=== PATIENT | female | born 1985 | race Caucasian/White ===

== ENCOUNTER 2021-07-31 20:23 | Emergency (ER) | payer BC ==
[~2021-07-31] VITALS: Ht 172.7 cm; Wt 115.0 kg
== END 2021-08-01 00:49 | disposition home or self-care (01) ==
LOC: ED 20:23
DX: B34.9 Viral infection, unspecified (principal); I10 Essential (primary) hypertension; Z20.822 Contact with and (suspected) exposure to COVID-19
CPT/HCPCS: 99283; U0003

== ENCOUNTER 2021-09-20 09:59 | Emergency (ER) | payer BC ==
[~2021-09-20] VITALS: Ht 172.7 cm; Wt 113.2 kg
== END 2021-09-20 13:08 | disposition home or self-care (01) ==
LOC: ED 09:59
DX: U07.1 COVID-19 (principal); I10 Essential (primary) hypertension
CPT/HCPCS: 87502; 99283; C9803; U0003